=== PATIENT | female | born 1960 | race Caucasian/White ===

== ENCOUNTER 2016-06-01 10:56 | Inpatient (IN) | payer MEDICARE ==
[~2016-06-01 10:56] MED LIST: ADIPEX-P37.5 M; ALBUTEROL17 GM INH; ANTIVERT25 MG PO; ASMANEX INH; ASPIR 8181 M1 PO; BACTROBAN22 GM TP; BIAXIN XL500 MG PO; CEPHALEXIN500 M PO; CIPRO250 MG PO; CLEOCIN HCL300 MG PO; CLINDAMYCIN HC150 MG PO; CLINDAMYCIN HC300 MG PO; CPAP; CYCLOBENZAPRINE10 M1 PO; ERYTHROMYCIN3.5 GM OP; FLEXERIL10 MG PO; GLUCOSAMIN-CHO1 EACH PO; HYDROCHLOROTH12.5 M1 PO; HYDROCHLOROTHIA25 MG; HYDROCHLOROTHIA25 MG PO; HYDROCHLOROTHIAZIDE; IBUPROFEN200 M1 PO; IBUPROFEN200 MG; IBUPROFEN800 MG PO; KEFLEX500 MG; KEFLEX500 MG PO; LASIX20 M1 PO; LEVAQUIN750 MG PO; MACROBID100 MG/CA1 PO; MAXZIDE-25 MG1 UDTAB; MAXZIDE1 TAB PO; MOBIC7.5 M2 PO; MOTRIN IB200 M1 PO; NABUMETONE750 MG PO; NAPROSYN500 MG PO; NORCO 5-325 TA1 EACH PO; NORCO 5/325 TAB1 TAB PO; PHENERGAN25 M1 PO; PREDNISONE10 M1 PO; PROVENTIL HFA6.7 G1 IH; PROVENTIL HFA6.7 GM IH; PULMICORT FLEX90 MCG INH; PYRIDIUM200 MG PO; RELAFEN500 MG PO; TESSALON200 MG PO; TRAMADOL HCL50 M2 PO; TRAMADOL HCL50 MG PO; TRIAMTERENE-HC1 EAC1 PO; TYLENOL325 M2 PO; TYLENOL500 MG; ULTRAM50 MG PO; VICKS VAPORUB170 GM TOP; VICODIN 5/500 T1 TAB; WATER PILL; WATER PILL PO; ZITHROMAX250 M1 PO; ZITHROMAX250MG Z-PAK PO; ZOFRAN ODT4 MG/UDTAB PO; ZYRTEC1010 PO; [UNRECOGNIZED DRUG - OTHER]; [UNRECOGNIZED DRUG - OTHER] PO; hctz PO
[2016-06-01 12:29] LABS: PROTHROMBIN TIME 12.1 SECONDS (9.0-13.6)
[2016-06-02 06:12] LABS: BASO % 0.2 % (0-2); EOS % 0.2 % (0-7); HCT-HEMATOCRIT 34.4 % (34.0-49.0); HGB-HEMOGLOBIN 11.2 gm/dl (12.0-15.5); IMMATURE GRANULOCYTES ABSOLUTE 0.04 tho/cmm (0-0.03); IMMATURE GRANULOCYTES PERCENT 0.3 % (0-0.3); LYMPH % 12.4 % (20-45); LYMPH ABSOLUTE COUNT 1.5 tho/cmm (0.8-4.5); MCH (MEAN CORPUSCULAR HGB) 28.2 pg (28.0-32.0); MCHC MEAN CORPUSCULAR HGB CONC 32.6 % (32.0-36.0); MCV (MEAN CELL VOLUME) 86.6 fl (82.0-96.0); MEAN PLATELET VOLUME 10.4 cmc (9.4-12.4); MONO % 13.3 % (0-12); MONOCYTE ABSOLUTE COUNT 1.6 tho/cmm (0.0-1.2); NEUTROPHIL ABSOLUTE COUNT 8.9 tho/cmm (1.6-8.0); NEUTROPHIL-AUTOMATED 8.9 tho/cmm (1.6-8.0); NEUTROPHILS % 73.6 % (40-80); PLATELET COUNT 239 tho/cmm (150-450); RED BLOOD COUNT 3.97 mil/cmm (4.00-5.20); RED CELL DISTRIBUTION WIDTH 14.2 % (12.4-16.4); WHITE BLOOD COUNT 12.1 tho/cmm (4.0-10.0)
[2016-06-02] MEDS ORDERED: LOTRISONE CREAM15 GM TP (14:03)
[2016-06-04 06:27] LABS: HCT-HEMATOCRIT 32.2 % (34.0-49.0); HGB-HEMOGLOBIN 10.5 gm/dl (12.0-15.5); MCV (MEAN CELL VOLUME) 86.1 fl (82.0-96.0); RED CELL DISTRIBUTION WIDTH 14.5 % (12.4-16.4)
[2016-06-04] MEDS ORDERED: ASPIRIN325 M3 PO (08:11)
[2016-06-04] MEDS ORDERED: NUCYNTA50 M1 PO (08:12)
[2016-06-04] MEDS ORDERED: PERCOCET 5-3251 EACH PO (08:13)
[2016-06-04] MEDS ORDERED: MOBIC7.5 M2 PO (08:16)
== END 2016-06-04 12:50 | DRG 470 ==
LOC: SHSC 10:56 → ORE 14:26 → PACU 16:12 → 5EA 17:00
PROVIDERS: Internal Medicine; ADMIT Orthopaedic Surgery
PROC: 0SRC0J9 Replacement of Right Knee Joint with Synthetic Substitute, Cemented, Open Approach (ICD-10-PCS; principal; 2016-06-01)
DX: M17.11 Unilateral primary osteoarthritis, right knee (principal); Z68.43 Body mass index [BMI] 50.0-59.9, adult; E66.9 Obesity, unspecified; J45.909 Unspecified asthma, uncomplicated
CPT/HCPCS: C1713; C1776; J0171; J0690; J2795